=== PATIENT | male | born 1985 ===

== ENCOUNTER 2017-02-13 10:00 | Emergency (ER) | payer OTHER, BC ==
[2017-02-13] MEDS ORDERED: Morphine 4 MG/ML VIAL ONE ×2 (10:15→12:50)
--- NOTE | 2017-02-13 10:19 | ED PDOC ---
Upper Extremity Pain/Injury Time Seen by Provider: 02/13/17 10:05 Chief Complaint (Nursing): Upper Extremity Problem/Injury Chief Complaint (Provider): Left shoulder injury History Per: Patient History/Exam Limitations: no limitations Current Symptoms Are (Timing): Still Present Additional Complaint(s): 31 year old male presents to the emergency department via EMS with a complaint of a left shoulder pain after sustaining an injury prior to arrival. Patient reports he was working, moving equipment, slipped, and fell on ice injuring the left shoulder. States his shoulder is immobile. Patient arrived with a sling on the left shoulder with support held in abducted position of comfort. Denies head /neck trauma, loss of consciousness, weakness, numbness, or tingling of the elbow and hand. Of note, patient dislocated his left shoulder about 1 year ago. Past Medical History Reviewed: Historical Data, Nursing Documentation, Vital Signs Vital Signs: Last Vital Signs Temp 98 F 02/13/17 10:03 Pulse 78 02/13/17 10:03 Resp 20 02/13/17 10:03 BP 158/95 H 02/13/17 10:03 Pulse Ox 96 02/13/17 10:03 - Medical History PMH: No Chronic Diseases - Family History Family History: States: Unknown Family Hx - Social History Current smoker - smoking cessation education provided: No Alcohol: None Drugs: Denies - Home Medications Home Medications: Ambulatory Orders Medication Instructions Recorded Naproxen [Naprosyn] 500 mg PO BID PRN #14 tablet 02/13/17 oxyCODONE/Acetaminophen [Percocet 1 ea PO Q4 PRN #6 tab 02/13/17 5/325 mg Tab] - Allergies Allergies/Adverse Reactions: Allergies Allergy/AdvReac Type Severity Reaction Status Date / Time No Known Allergies Allergy Verified 02/13/17 10:11 Review of Systems ROS Statement: Except As Marked, All Systems Reviewed And Found Negative (As per HPI, otherwise negative) Constitutional: Negative for: Weakness, Malaise Eyes: Negative for: Vision Change ENT: Negative for: Throat Pain, Throat Swelling Cardiovascular: Negative for: Chest Pain Respiratory: Negative for: Shortness of Breath Musculoskeletal: Positive for: Shoulder Pain (Left). Negative for: Other (Head/ neck trauma, loss of consciousness, weakness, numbness, or tingling of the elbow and hand. ) Neurological: Negative for: Weakness, Numbness Physical Exam - Reviewed Nursing Documentation Reviewed: Yes Vital Signs Reviewed: Yes - Physical Exam Appears: Positive for: Non-toxic, No Acute Distress Skin: Positive for: Normal Color, Warm Eye Exam: Positive for: Normal appearance, EOMI Neck: Positive for: Normal, Painless ROM Cardiovascular/Chest: Positive for: Regular Rate, Rhythm Respiratory: Positive for: Normal Breath Sounds Gastrointestinal/Abdominal: Negative for: Tenderness Extremity: Positive for: Tenderness, Deformity (Left shoulder deformity with loss of range of motion). Negative for: Normal ROM Neurologic/Psych: Positive for: Alert, Oriented (x3). Negative for: Motor/ Sensory Deficits - ECG O2 Sat by Pulse Oximetry: 96 (RA) Pulse Ox Interpretation: Normal Medical Decision Making Medical Decision Making: Time: 1011 Initial Impression: Left shoulder injury s/p fall Initial Plan: --Morphine 4 mg IV --Chest x-ray --Left shoulder x-ray --Reevaluation Time: 1050 --Morphine 2 mg IV --Environmental Services Director CONT --END Tidal Carbon Dioxide (RESP) Time: 1110 --Chest x-ray FINDINGS: LUNGS: Clear. PLEURA: No pneumothorax or pleural fluid seen. CARDIOVASCULAR: Normal. OSSEOUS STRUCTURES: No significant abnormalities. VISUALIZED UPPER ABDOMEN: Normal. OTHER FINDINGS: None. IMPRESSION: No active disease. Time: 1110 --Shoulder x-ray FINDINGS: BONES: Grossly limited examination consists of a single oblique view. Inferior displacement of the humeral head relative to the glenoid may reflect anterior dislocation. Correlate clinically and consider further radiographic evaluation if warranted. No fracture identified. JOINTS: As above SOFT TISSUES: Normal. OTHER FINDINGS: None. IMPRESSION: Limited examination. Inferior displacement of humeral head relative to glenoid may reflect anterior dislocation. Time: 1118 --Propofol 70 mg IV Time: 1132 --Morphine 2 mg IV --Chest x-ray Time: 1328 --Chest x-ray --FINDINGS: BONES: . No fracture. . Acromioclavicular space narrowing with osseous hypertrophy The prior anterior inferior dislocated left humeral head is returned to anatomical alignment with the glenoid fossa per frontal view JOINTS: . Glenohumeral and acromioclavicular joints preserved. No osteoarthritis. SOFT TISSUES: Normal. OTHER FINDINGS: None. IMPRESSION: Postreduction left humeral head is returned to anatomical alignment with the glenoid fossa Re-eval 245p awake, alert, no complaints. Vitals stable. to accompany home in inclement weather. Caution on ice/snow. Time: 1457 Upon provider reevaluation patient is feeling better, is medically stable, and requires no further treatment in the ED at this time. Patient will be discharged home with shoulder immobilizer and Rx for Naprosyn 500 mg and Percocet 5/325 mg. Counseling was provided and all questions were answered regarding diagnosis and need for follow up with Dr. Angelo Devine MD. There is agreement to discharge plan. Return if symptoms persist or worsen. [facility] [employer] database query revealed no narcotics Rx under name Rx naprosyn and percocet #6 pills for breakthrough pain Clinical Impression: Dislocated shoulder Scribe~Attestation: Documented by Roxie Rivera, acting as a scribe for Dominic Marvin DO. Provider Scribe~Attestation: All medical record entries made by the Scribe were at my direction and personally dictated by me. I have reviewed the chart and agree that the record accurately reflects my personal performance of the history, physical exam, medical decision making, and the department course for this patient. I have also personally directed, reviewed, and agree with the discharge instructions and disposition. 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 NPO since 8am, coffee only today procedural sedation provided by dr marvin ETCO2 monitored throughput, remained 32-39 SPO2 remained 100% 2L O2 NC dr marvin and dr hodges reduced L shoulder via traction/countertraction successful reduction tolerated well placed in shoulder immobilizer 115pm physician re-eval awake, alert, morphine 2mg given for pain which is improved Disposition - Clinical Impression Clinical Impression: Dislocated shoulder - Patient ED Disposition Is Patient to be Admitted: No Counseled Patient/Family Regarding: Studies Performed, Diagnosis, Need For Followup, Rx Given - Disposition Referrals: Angelo Devine MD [Medical Doctor] - Disposition: Routine/Home Disposition Time: 14:57 Condition: STABLE Additional Instructions: Wear shoulder immobilizer at all times for at least 5 days. Take pain medicine only as needed. See orthopedist for clearance to return to work. Prescriptions: Naproxen [Naprosyn] 500 mg PO BID PRN #14 tablet PRN Reason: Pain, Moderate (4-7) oxyCODONE/Acetaminophen [Percocet 5/325 mg Tab] 1 ea PO Q4 PRN #6 tab PRN Reason: Pain, Severe (8-10) Instructions: Shoulder Dislocation (ED), Deep Sedation (ED) Forms: [facility] [facility] ([place]), [facility] ED School/Work Excuse Print Language: H[place] K[place]ER
--- NOTE | 2017-02-13 11:11 | RAD ---
PROCEDURE: Radiographs of the Left Shoulder HISTORY: fall L shoulder pain COMPARISON: No prior. FINDINGS: BONES: Grossly limited examination consists of a single oblique view. Inferior displacement of the humeral head relative to the glenoid may reflect anterior dislocation. Correlate clinically and consider further radiographic evaluation if warranted. No fracture identified. JOINTS: As above SOFT TISSUES: Normal. OTHER FINDINGS: None. IMPRESSION: Limited examination. Inferior displacement of humeral head relative to glenoid may reflect anterior dislocation.
--- NOTE | 2017-02-13 11:12 | RAD ---
PROCEDURE: CHEST RADIOGRAPH, 1 VIEW HISTORY: fall L shoulder pain COMPARISON: None available. FINDINGS: LUNGS: Clear. PLEURA: No pneumothorax or pleural fluid seen. CARDIOVASCULAR: Normal. OSSEOUS STRUCTURES: No significant abnormalities. VISUALIZED UPPER ABDOMEN: Normal. OTHER FINDINGS: None. IMPRESSION: No active disease.
[2017-02-13] MEDS ORDERED: Propofol 10 mg/ml Inj (20 ML) IV ONE (11:18)
[2017-02-13 11:20] VITALS: TEMP 97.8; BMI 31.3
[2017-02-13] MEDS ORDERED: Propofol 10 mg/ml Inj (20 ML) ONE (11:44)
--- NOTE | 2017-02-13 13:29 | RAD ---
PROCEDURE: Radiographs of the Left Shoulder HISTORY: post red COMPARISON: 02/13/2017 ; 10:27 hours FINDINGS: BONES: . No fracture. . Acromioclavicular space narrowing with osseous hypertrophy The prior anterior inferior dislocated left humeral head is returned to anatomical alignment with the glenoid fossa per frontal view JOINTS: . Glenohumeral and acromioclavicular joints preserved. No osteoarthritis. SOFT TISSUES: Normal. OTHER FINDINGS: None. IMPRESSION: Postreduction left humeral head is returned to anatomical alignment with the glenoid fossa
[2017-02-13 13:45] VITALS: RESP 12
[2017-02-13 14:39] VITALS: BP 146/87; PULSE 70
[2017-02-13 14:58] VITALS: O2SAT 96
== END 2017-02-13 15:26 | disposition home or self-care (01) ==
LOC: H.ER 10:00
DX: S43.102A Unspecified dislocation of left acromioclavicular joint, initial encounter (principal); W19.XXXA Unspecified fall, initial encounter; Y99.0 Civilian activity done for income or pay
CPT/HCPCS: 23655; 71045; 73030; 94770; 96374; 96376; 99284; J2270; J2704

== ENCOUNTER 2018-05-04 23:14 | Emergency (ER) | payer BC, OTHER ==
[2018-05-04 23:14] VITALS: BMI 31.3
[2018-05-04 23:29] VITALS: O2SAT 100
[2018-05-05] MEDS ORDERED: Sodium Chloride 0.9% 1,000 ML IV STA (02:01)
--- NOTE | 2018-05-05 02:21 | ED PDOC ---
HPI: Abdomen Time Seen by Provider: 05/05/18 01:45 Chief Complaint (Nursing): Abdominal Pain Chief Complaint (Provider): Abdominal Pain History Per: Patient History/Exam Limitations: no limitations Onset/Duration Of Symptoms: Days (3) Location Of Pain/Discomfort: Epigastric Associated Symptoms: Nausea, Vomiting, Diarrhea Additional Complaint(s): 32 y/o male with no significant PMHx presents to the ED with abdominal pain associated with nausea, vomiting, diarrhea, for x3 days. Patient reports that on Friday he developed multiple episodes of non bloody non bilious vomiting as well as non-bloody diarrhea. Patient attributes symptoms to something he ate. He states today the vomiting and diarrhea became somewhat better but worsening abdominal pain that he describes as epigastric. Also reports having fever. Past Medical History Reviewed: Historical Data, Nursing Documentation, Vital Signs Vital Signs: Last Vital Signs Temp 99.0 F 05/04/18 23:26 Pulse 72 05/04/18 23:26 Resp 18 05/04/18 23:26 BP 131/67 05/04/18 23:26 Pulse Ox 100 05/04/18 23:26 - Medical History PMH: No Chronic Diseases - Surgical History Surgical History: No Surg Hx - Family History Family History: States: Unknown Family Hx - Social History Current smoker - smoking cessation education provided: No Alcohol: None Drugs: Denies - Home Medications Home Medications: Ambulatory Orders Medication Instructions Recorded Naproxen [Naprosyn] 500 mg PO BID PRN #14 tablet 02/13/17 oxyCODONE/Acetaminophen [Percocet 1 ea PO Q4 PRN #6 tab 02/13/17 5/325 mg Tab] Dicyclomine [Bentyl] 20 mg PO Q12 PRN #20 tab 05/05/18 Ondansetron ODT [Zofran ODT] 4 mg PO Q6 PRN #8 odt 05/05/18 - Allergies Allergies/Adverse Reactions: Allergies Allergy/AdvReac Type Severity Reaction Status Date / Time No Known Allergies Allergy Verified 02/13/17 10:11 Review of Systems ROS Statement: Except As Marked, All Systems Reviewed And Found Negative Constitutional: Positive for: Fever Gastrointestinal: Positive for: Nausea, Vomiting, Abdominal Pain, Diarrhea Physical Exam - Reviewed Nursing Documentation Reviewed: Yes Vital Signs Reviewed: Yes - Physical Exam Appears: Positive for: Uncomfortable Head Exam: Positive for: ATRAUMATIC, NORMAL INSPECTION, NORMOCEPHALIC Skin: Positive for: Normal Color, Warm, DRY Eye Exam: Positive for: EOMI, Normal appearance, PERRL ENT: Positive for: Other (mucous membranes tacky ) Neck: Positive for: Normal, Painless ROM Cardiovascular/Chest: Positive for: Regular Rate, Rhythm. Negative for: Murmur Respiratory: Positive for: Normal Breath Sounds. Negative for: Respiratory Distress Gastrointestinal/Abdominal: Positive for: Tenderness (epigastric) Back: Positive for: Normal Inspection Extremity: Positive for: Normal ROM. Negative for: Pedal Edema, Deformity Neurological/Psych: Positive for: Awake, Alert, Normal Tone. Negative for: Motor/Sensory Deficits - Laboratory Results Result Diagrams: 05/05/18 02:31 05/05/18 02:31 - ECG O2 Sat by Pulse Oximetry: 100 (RA) Pulse Ox Interpretation: Normal Medical Decision Making Medical Decision Making: Time: 02:00 Impression: 32 y/o with abdominal pain Initial Plan: * Labs * Bentyl * IV Fluids * Zofran 04:00 Labs reviewed no clinically significant abnormalities. Patient reports improvement of symptoms and will be discharged home. Diagnosis is gastroenteritis. Scribe Attestation: Documented by Kiko Crook, acting as a scribe Micky Farnsworth MD Provider Scribe Attestation: All medical record entries made by the Scribe were at my direction and p ersonally dictated by me. I have reviewed the chart and agree that the record accurately reflects my personal performance of the history, physical exam, medical decision making, and the department course for this patient. I have also personally directed, reviewed, and agree with the discharge instructions and disposition Disposition - Clinical Impression Clinical Impression: Gastroenteritis - Patient ED Disposition Is Patient to be Admitted: No - Disposition Disposition: Routine/Home Disposition Time: 04:00 Condition: STABLE Additional Instructions: KOBY GENTILE, thank you for letting us take care of you today. Your provider was Adam Farnsworth MD and you were treated for ABD PAIN. The emergency medical care you received today was directed at your acute symptoms. If you were prescribed any medication, please fill it and take as directed. It may take several days for your symptoms to resolve. Return to the Emergency Department if your symptoms worsen, do not improve, or if you have any other problems. Please contact your doctor or call one of the physicians/clinics you have been referred to that are listed on the Patient Visit Information form that is included in your discharge packet. Bring any paperwork you were given at discharge with you along with any medications you are taking to your follow up visit. Our treatment cannot replace ongoing medical care by a primary care provider outside of the emergency department. Thank you for allowing the [facility] team to be part of your care today. If you had an X-Ray or CT scan: A Radiologist will review the ED reading if any change in treatment is needed we will contact you. If you had a blood, urine, or wound culture: It will take several days for the results, if any change in treatment is needed we will contact you. If you had an STI test: It will take 48 hours for the results. Please call after 1 week if you have not heard back. Prescriptions: Dicyclomine [Bentyl] 20 mg PO Q12 PRN #20 tab PRN Reason: abdominal pain/diarrhea Ondansetron ODT [Zofran ODT] 4 mg PO Q6 PRN #8 odt PRN Reason: Nausea/Vomiting Instructions: Gastroenteritis (ED) Forms: [employer] ([place]), [facility] ED School/Work Excuse Print Language: MALTESE
[2018-05-05 02:35] LABS: BASO % 0.4 % (0.0-2.0); EOS # 0.1 K/uL (0.0-0.7); EOS % 2.1 % (0.0-4.0); HEMOGLOBIN 14.3 g/dL (12.0-18.0); LYMPH # 1.4 K/uL (1.0-4.3); LYMPH % 22.5 % (20.0-40.0); MEAN CELL VOLUME 93.3 fl (80.0-94.0); MEAN CORPUSCULAR HEMOGLOBIN 30.8 pg (27.0-31.0); MEAN CORPUSCULAR HGB CONC 33.1 g/dL (33.0-37.0); MEAN PLATELET VOLUME 8.3 fl (7.2-11.7); MONO # 0.7 K/uL (0.0-0.8); MONO % 11.3 % (0.0-10.0); NEUT % 63.7 % (50.0-75.0); RBC 4.64 Mil/uL (4.40-5.90); RED CELL DISTRIBUTION WIDTH 12.8 % (11.5-14.5); WHITE BLOOD COUNT 6.2 K/uL (4.8-10.8)
[2018-05-05 02:44] LABS: ALB/GLOB RATIO 1.3 (1.0-2.1); ALT/SGPT 63 U/L (21-72); AST/SGOT 34 U/L (17-59); BLOOD UREA NITROGEN 12 mg/dl (9-20); CALCIUM 8.7 mg/dL (8.4-10.2); GFR NON-AFRICAN AMERICAN > 60; LIPASE 32 U/L (23-300)
[2018-05-05 03:45] LABS: SQUAMOUS EPITHIAL < 1 /hpf (0-5); URINE BACTERIA RARE (<OCC); URINE BILIRUBIN NEGATIVE (NEGATIVE); URINE BLOOD NEGATIVE (NEGATIVE); URINE CLARITY SLIGHTY-CLOUDY (Clear); URINE COLOR YELLOW (YELLOW); URINE GLUCOSE (UA) NEG (NEGATIVE); URINE LEUKOCYTE ESTERASE NEG Leu/uL (Negative); URINE PROTEIN NEGATIVE (NEGATIVE); URINE UROBILINOGEN 0.2-1.0 mg/dL (0.2-1.0)
[2018-05-05 04:16] VITALS: BP 126/83; PULSE 77; RESP 16; TEMP 98.7
== END 2018-05-05 04:16 | disposition home or self-care (01) ==
LOC: H.ER 23:14
DX: K52.9 Noninfective gastroenteritis and colitis, unspecified (principal)
CPT/HCPCS: 80053; 81003; 83690; 85025; 96374; 96375; 99283; J1885; J2405; J7030